=== PATIENT | female | born 1945 | race Caucasian/White ===

== ENCOUNTER 2019-11-22 12:38 | Emergency (ER) | payer BC, MEDICARE, OTHER ==
--- NOTE | 2019-11-22 13:13 | EDM.PDOC ---
ED HPI GENERAL MEDICAL PROBLEM - General Chief Complaint: Cardiovascular Problem Stated Complaint: golfing became light headed Time Seen by Provider: 11/22/19 12:55 Source of Information: Reports: Patient History Limitations: Reports: No Limitations - History of Present Illness INITIAL COMMENTS - FREE TEXT/NARRATIVE: 74-year-old otherwise healthy female was out golfing and suddenly felt lightheaded and weak, palpitations, and just felt off. She had no chest pain or shortness of breath. She took her pulse and it felt rapid. When it persisted she came into the emergency room, it is been occurring now for about 2 hours. She is on no new medications, is not ill, has not had fevers or cough, has not had this happen to her in the past. She had a complete physical just within the last few weeks before coming up for the summer. Onset: Sudden Duration: Hour(s): (Less than 2 hours ago) Improves with: Reports: None Worsens with: Reports: Other (Walking or activity seems to make it worse) Associated Symptoms: Reports: Shortness of Breath, Weakness - Related Data Allergies Allergy/AdvReac Type Severity Reaction Status Date / Time No Known Allergies Allergy Verified 11/22/19 13:05 Home Meds: Home Meds Zolpidem Tartrate [Ambien] 5 mg PO ASDIRECTED PRN 11/22/19 [History] Past Medical History Cardiovascular History: Reports: High Cholesterol, Hypertension [employer] History: Reports: Musculoskeletal History: Reports: Other (See Below) Other Musculoskeletal History: osteopenia Hematologic History: Reports: Anemia - Infectious Disease History Infectious Disease History: Reports: Chicken Pox - Past Surgical History HEENT Surgical History: Reports: Cataract Surgery Musculoskeletal Surgical History: Reports: Other (See Below) ED ROS GENERAL - Review of Systems Review Of Systems: See Below Constitutional: Reports: Malaise. Denies: Fever, Chills HEENT: Reports: No Symptoms Respiratory: Reports: Shortness of Breath. Denies: Cough Cardiovascular: Reports: Palpitations. Denies: Chest Pain GI/Abdominal: Reports: No Symptoms Musculoskeletal: Reports: No Symptoms Skin: Reports: No Symptoms Neurological: Reports: Dizziness, Weakness Psychiatric: Reports: No Symptoms ED EXAM, GENERAL - Physical Exam Exam: See Below Exam Limited By: No Limitations General Appearance: Alert, No Apparent Distress Eye Exam: Bilateral Eye: Normal Inspection Head: Atraumatic Neck: Supple, Non-Tender Respiratory/Chest: Lungs Clear Cardiovascular: Regular Rate, Rhythm, Tachycardia GI/Abdominal: Soft, Non-Tender Extremities: Normal Inspection. No: Pedal Edema Neurological: Alert, Oriented Psychiatric: Normal Affect, Normal Mood Course - Vital Signs Last Recorded V/S: Last Vital Signs Temp 97.5 F 11/22/19 13:07 Pulse 140 H 11/22/19 13:07 Resp 18 11/22/19 13:07 BP 105/66 11/22/19 13:07 Pulse Ox 96 11/22/19 13:07 - Re-Assessments/Exams Free Text/Narrative Re-Assessment/Exam: 11/22/19 16:18 Place the patient on a wildlife and game protector and she was in some type of a supraventricular tachycardia with a regular narrow complex that appeared to be a 2-1 flutter or slow SVT. A carotid body massage was performed on the left carotid, and within 15 seconds she converted back to sinus rhythm. Her symptoms resolved. She was observed for 15 minutes and was stable. She declined any further work-up but will return if symptoms recur. Departure - Departure Time of Disposition: 13:18 Disposition: Home, Self-Care 01 Clinical Impression: SVT (supraventricular tachycardia) Instructions: Supraventricular Tachycardia, Adult, [id number] Referrals: PCP,None [Primary Care Provider] - Forms: ED Department Discharge Care Plan Goals: Resume activity as tolerated, stay hydrated, and avoid any extra stimulants such as caffeine. Return anytime if worsening or concerns. Sepsis Event Note (ED) - Evaluation Sepsis Screening Result: No Definite Risk - Focused Exam Vital Signs: Vital Signs Temp Pulse Resp BP Pulse Ox 11/22/19 13:07 97.5 F 140 H 18 105/66 96 11/22/19 12:53 97.5 F 140 H 18 105/66 96
[2019-11-22 13:18] VITALS: BP 105/66; PULSE 140
== END 2019-11-22 13:18 | disposition home or self-care (01) ==
LOC: JP.ED 12:38
DX: I47.1 Supraventricular tachycardia (principal); I10 Essential (primary) hypertension
CPT/HCPCS: 99283; 99284